=== PATIENT | male | born 1975 | race Caucasian/White ===

== ENCOUNTER 2022-12-23 07:57 | Day surgery (SDC) | payer OTHER ==
[~2022-12-23] VITALS: Ht 167.6 cm; Wt 86.6 kg
[~2022-12-23 07:57] MED LIST: CYCL10 PO; HYDACE5 PO; IBUP600 PO; NAPR500 PO; Norco 5-325 Ta1 EACH PO; Prednisone20 MG PO
--- NOTE | 2022-12-23 08:59 | NUR ---
History, Chart, Medications and Allergies reviewed before start of procedure.LUNGS CLEAR,PRE OP TEACHING DONE
--- NOTE | 2022-12-23 11:26 | NUR ---
Discharge instructions reviewed with patient. Patient verbalizes understanding. Copy given to patient to take home. Patient States Post-Procedure ride home has been arranged. Dressing to procedure site clean, dry, intact with no visible drainage, swelling, erythema or bruising noted. Discharged via wheelchair to private car for ride home.
== END 2022-12-23 22:48 | disposition home or self-care (01) ==
LOC: ORSCMMR 07:57 → ORD 09:00 → ORSCMMR 22:48
PROVIDERS: Surgery
PROC: 0WQF4ZZ Repair Abdominal Wall, Percutaneous Endoscopic Approach (ICD-10-PCS; principal; 2022-12-23 09:00)
DX: K42.0 Umbilical hernia with obstruction, without gangrene (principal); F17.220 Nicotine dependence, chewing tobacco, uncomplicated
CPT/HCPCS: A9270; C1781; J0690; J1100; J1885; J2250; J2405; J2704; J2795; J3010; J7120

== ENCOUNTER 2025-01-02 08:57 | Day surgery (SDC) | payer OTHER ==
[~2025-01-02] VITALS: Ht 167.6 cm; Wt 84.3 kg
[~2025-01-02 08:57] MED LIST changes: +EPINEPhrine HCl 1 MG / ML 30ML Vial ONE; +FentaNYL Citrate 50 MCG/ML 2 ML Injection ONE; +Lactated Ringer's 1,000 ML IV ONE; +Lidocaine 1%-Epineph 1:200000 30 ML SDV ONE; +Midazolam HCl 1MG / ML 2ML Vial ONE; +propofoL 20 ML IV ONE
[2025-01-02] MEDS ORDERED: Tranexamic Acid 100 ML IV ONE (09:14)
[2025-01-02] MEDS ORDERED: ZANAFLEX413 PO (09:20)
[2025-01-02] MEDS ORDERED: NAPR220 PO (09:23)
[2025-01-02] MEDS ORDERED: CLAR500 PO (09:23)
[2025-01-02] MEDS ORDERED: Lactated Ringer's 1,000 ML IV ONE (09:32)
--- NOTE | 2025-01-02 10:07 | NUR ---
01/02/[address] [place], [place] [address] NOTIFIED THAT PATIENT HAD CHEW IN HIS MOUTH UNTIL THIS MORNING ABOUT [phone]. NOW NEW ORDERS.
--- NOTE | 2025-01-02 10:53 | NUR ---
01/02/25 1053 William Roblero 30ML OF EPI 1MG/ML USED FOR SOAKING PLEDGETTS ON FIELD.
[2025-01-02] MEDS ORDERED: Lidocaine 1%-Epineph 1:200000 30 ML SDV ONE (11:05)
[2025-01-02] MEDS ORDERED: HYDROmorphone HCl/Pf 1MG SYR ONE (11:41)
[2025-01-02] MEDS ORDERED: Rocuronium Bromide 10 MG/ML 5ML Injection IV ONE (11:50)
[2025-01-02] MEDS ORDERED: Ondansetron HCl 2 MG / ML 2ML Vial ONE ×3 (11:50→13:07)
[2025-01-02] MEDS ORDERED: Dexamethasone Sod Phos 10 MG/ML 1ML VIAL ONE (11:50)
[2025-01-02] MEDS ORDERED: Sugammadex Sodium 200 MG/2ML SDV (100 MG/ML) ONE ×2 (11:51→12:31)
[2025-01-02] MEDS ORDERED: propofoL 20 ML IV ONE (11:56)
[2025-01-02] MEDS ORDERED: EPINEPhrine HCl 1 MG / ML 30ML Vial ONE (12:00)
[2025-01-02] MEDS ORDERED: FentaNYL Citrate 50 MCG/ML 2 ML Injection ONE (13:02)
--- NOTE | 2025-01-02 13:07 | NUR ---
01/02/25 8753 SELMA VALENZUELA SLIGHT NAUSEA- "VAGUE", COMES AND GOES PAIN 06/02
[2025-01-02 13:46] VITALS: BP 133/99
[2025-01-02] MEDS ORDERED: OxyCODONE HCL 5 MG TAB ONE (13:55)
== END 2025-01-02 14:42 | disposition home or self-care (01) ==
LOC: ORSCSDS 08:57
PROVIDERS: Otolaryngology
PROC: 09SM0ZZ Reposition Nasal Septum, Open Approach (ICD-10-PCS; principal; 2025-01-02 10:30)
PROC: 09DU4ZZ Extraction of Right Ethmoid Sinus, Percutaneous Endoscopic Approach (ICD-10-PCS; principal; 2025-01-02 10:30)
PROC: 09DV4ZZ Extraction of Left Ethmoid Sinus, Percutaneous Endoscopic Approach (ICD-10-PCS; principal; 2025-01-02 10:30)
DX: J32.8 Other chronic sinusitis (principal); J34.2 Deviated nasal septum; F17.220 Nicotine dependence, chewing tobacco, uncomplicated; Z79.899 Other long term (current) drug therapy; E66.9 Obesity, unspecified; Z68.30 Body mass index [BMI] 30.0-30.9, adult
CPT/HCPCS: 88305; 88311; A9270; C2625; J0171; J1100; J1171; J2250; J2405; J2704; J3010; J7120

== ENCOUNTER 2025-01-21 10:55 | Day surgery (SDC) | payer OTHER ==
[~2025-01-21] VITALS: Ht 167.6 cm; Wt 85.8 kg
[~2025-01-21 10:55] MED LIST changes: +CLAR500 PO; -EPINEPhrine HCl 1 MG / ML 30ML Vial ONE; -FentaNYL Citrate 50 MCG/ML 2 ML Injection ONE; +Lactated Ringer's 0 ML IV ONE; -Lactated Ringer's 1,000 ML IV ONE; -Lidocaine 1%-Epineph 1:200000 30 ML SDV ONE; +Lidocaine HCl 2% 10 ML SDA ONE; -Midazolam HCl 1MG / ML 2ML Vial ONE; +NAPR220 PO; +ZANAFLEX413 PO; +propofoL 0 ML IV ONE; -propofoL 20 ML IV ONE
[2025-01-21] MEDS ORDERED: NS 500 ML IV ONE (11:15)
[2025-01-21] MEDS ORDERED: IBUP600 (11:17)
[2025-01-21] MEDS ORDERED: ACET500 (11:18)
[2025-01-21] MEDS ORDERED: PRED20 (11:18)
[2025-01-21 11:30] VITALS: BP 135/99
--- NOTE | 2025-01-21 11:38 | NUR ---
01/21/25 Teetee Coats CONTACT LENSES REMOVED AND PLACED IN STERILE CUPS WITH SALINE.
[2025-01-21] MEDS ORDERED: NS 0 ML IV ONE (11:45)
== END 2025-01-21 12:14 | disposition home or self-care (01) ==
LOC: ORSCSDS 10:55
DX: R22.32 Localized swelling, mass and lump, left upper limb (principal); D49.2 Neoplasm of unspecified behavior of bone, soft tissue, and skin; Z53.9 Procedure and treatment not carried out, unspecified reason
CPT/HCPCS: J2003; J2704; J7040; J7120

== ENCOUNTER 2025-01-28 07:05 | Day surgery (SDC) | payer OTHER ==
[~2025-01-28] VITALS: Ht 167.6 cm; Wt 87.0 kg
[~2025-01-28 07:05] MED LIST changes: +ACET500; +IBUP600; -Lactated Ringer's 0 ML IV ONE; +Lactated Ringer's 1,000 ML IV ONE; +NS 0 ML IV ONE; +PRED20; -propofoL 0 ML IV ONE
[2025-01-28] MEDS ORDERED: Lactated Ringer's 1,000 ML IV ONE (07:25)
[2025-01-28] MEDS ORDERED: propofoL 20 ML IV ONE (07:31)
[2025-01-28] MEDS ORDERED: FentaNYL Citrate 50 MCG/ML 2 ML Injection ONE (07:31)
[2025-01-28] MEDS ORDERED: Ketorolac Tromethamine 30mg Vial ONE (07:31)
[2025-01-28] MEDS ORDERED: Metoclopramide HCl 5MG / ML 2ML Vial ONE (07:31)
[2025-01-28] MEDS ORDERED: Ondansetron HCl 2 MG / ML 2ML Vial ONE (07:31)
[2025-01-28 09:04] VITALS: BP 110/84
== END 2025-01-28 09:19 | disposition home or self-care (01) ==
LOC: ORSCSDS 07:05
PROVIDERS: Orthopaedic Surgery
PROC: 0XB Anatomical Regions, Upper Extremities, Excision (ICD-10-PCS; principal; 2025-01-28 08:30)
DX: D18.01 Hemangioma of skin and subcutaneous tissue (principal); Z72.0 Tobacco use; E66.9 Obesity, unspecified; Z68.31 Body mass index [BMI] 31.0-31.9, adult; Z79.899 Other long term (current) drug therapy
CPT/HCPCS: 88305; J1885; J2003; J2405; J2704; J2765; J3010; J7040; J7120

== ENCOUNTER 2025-08-16 07:06 | Day surgery (SDC) | payer OTHER ==
[2025-08-16] VITALS (28 sets, daily range): BP systolic 98–149; BP diastolic 67–88
[~2025-08-16] VITALS: Ht 167.6 cm; Wt 78.3 kg
[~2025-08-16 07:06] MED LIST changes: -Lactated Ringer's 1,000 ML IV ONE; -Lidocaine HCl 2% 10 ML SDA ONE; -NS 0 ML IV ONE
[2025-08-16] MEDS ORDERED: GABA300 PO (07:20)
[2025-08-16] MEDS ORDERED: Midazolam HCl 1MG / ML 2ML Vial ONE (07:22)
[2025-08-16] MEDS ORDERED: Benzocaine Oral Spray 0.5ML UD ONE (07:23)
--- NOTE | 2025-08-16 07:52 | NUR ---
08/16/25 0752 Cristine Lugo CONFIRMED AND REVIEWED H&P, MEDCICATIONS, ALLERGIES, MEDICAL HISTORY, RESPIRATORY HISTORY, VITAL SIGNS, 3-LEAD EKG, CONSENTS, AND PHYSICIAN ORDERS. PATIENT CONFIRMS NPO STATUS AND AGREES WITH SCHEDULED PROCEDURE. MONITOR INTACT WITH CONTINUOUS PULSE OXIMETRY, CAPNOGRAPHY, 3-LEAD EKG, INTERMITTENT BP. SUPPLEMENTAL O2 TO BE TITRATED THROUGHOUT PROCEDURE TO MAINTAIN O2 SATURATION ABOVE 90%. PATIENT DETERMINED TO BE ASA APPROPRIATE FOR PROPOFOL SEDATION PRIOR TO START OF PROCEDURE BY DR. PUGH. MALLAMPATI CLASS 3 AIRWAY: VISUALIZATION OF ONLY THE BASE OF THE [place].
== END 2025-08-16 09:05 | disposition home or self-care (01) ==
LOC: ORSCMMR 07:06 → ORD 08:00 → ORSCMMR 09:05
PROVIDERS: Internal Medicine Gastroenterology
PROC: 0DB48ZX Excision of Esophagogastric Junction, Via Natural or Artificial Opening Endoscopic, Diagnostic (ICD-10-PCS; principal; 2025-08-16 08:00)
PROC: 0DJD8ZZ Inspection of Lower Intestinal Tract, Via Natural or Artificial Opening Endoscopic (ICD-10-PCS; principal; 2025-08-16 08:00)
PROC: 0DB78ZX Excision of Stomach, Pylorus, Via Natural or Artificial Opening Endoscopic, Diagnostic (ICD-10-PCS; principal; 2025-08-16 08:00)
DX: K21.00 Gastro-esophageal reflux disease with esophagitis, without bleeding (principal); Z12.11 Encounter for screening for malignant neoplasm of colon; B96.81 Helicobacter pylori [H. pylori] as the cause of diseases classified elsewhere; Z79.899 Other long term (current) drug therapy
CPT/HCPCS: 88305; 88313; 88342; A9270; J2250; J2704; J7120